=== PATIENT | female | born 1935 | race Caucasian/White ===

== ENCOUNTER 2020-03-11 18:10 | Emergency (ER) | payer MEDICARE, OTHER ==
[2020-03-11] MEDS ORDERED: ACETAMINOPHEN 325 MG TABLET PO ONE (18:51)
--- NOTE | 2020-03-11 19:07 | ER Document Report ---
ED Fall - General Chief Complaint: Fall Injury Stated Complaint: FALL/RIGHT SHOULDER PAIN,FACE PAIN Time Seen by Provider: 03/11/20 18:41 Primary Care Provider: JANNA YORK MD [ACTIVE PROVISIONAL STAFF] - 03/14/20 ALEX LIRA MD [Primary Care Provider] - Follow up as needed Information source: Patient Notes: 84-year-old female presented to ED after a fall that occurred just prior to arrival. She states she was reaching for some when she slipped and fell forward landing on her right arm and shoulder and abdomen. She states she did not hit her head except for a small place above her right forehead but this does not even hurt. She does have some very minimal bruising to that area. She does complain of a lot of pain to her right shoulder. She refused any narcotics states she would prefer Tylenol or ibuprofen. She was treated with ibuprofen. She does have limited mobility to the right shoulder due to the pain. She states she does take aspirin 81 mg daily. She states her pain is a 3 out of 5. She is alert oriented respirations regular nonlabored speaking in full sentences. - HPI Occurred: Just prior to arrival Where: Home, Indoors Context: Slipped Associated symptoms: None Location of injury/pain: Abdomen, Face, Shoulder Quality of pain: Achy, Sharp Severity: Moderate Pain Level: 3 - Related data Allergies/Adverse Reactions: No Known Allergies Allergy (Verified 03/11/20 18:34) Home Medications: pt does not have medication list at this time. Past Medical History - General Information source: Patient - Social History Smoking Status: Never Smoker Frequency of alcohol use: None Drug Abuse: None Lives with: Family Family History: Reviewed & Not Pertinent Patient has homicidal ideation: No - Past Medical History Cardiac Medical History: Reports: Hx Hypercholesterolemia, Hx Hypertension Pulmonary Medical History: Reports: None EENT Medical History: Reports: None Neurological Medical History: Reports: None Endocrine Medical History: Reports: Hx Diabetes Mellitus Type 2, Hx Hypothyroidism Renal/ Medical History: Reports: None Malignancy Medical History: Reports: None GI Medical History: Reports: None Musculoskeletal Medical History: Reports Hx Arthritis, Reports Hx Musculoskeletal Deformity, Reports Hx Musculoskeletal Trauma Skin Medical History: Reports None Psychiatric Medical History: Reports: None Traumatic Medical History: Reports: None Infectious Medical History: Reports: None Past Surgical History: Reports: Hx Tubal Ligation - Immunizations Immunizations up to date: Yes Review of Systems - Review of Systems Constitutional: No symptoms reported EENT: Other - Contusion above the right Cardiovascular: No symptoms reported Respiratory: No symptoms reported Gastrointestinal: No symptoms reported Genitourinary: No symptoms reported Female Genitourinary: No symptoms reported Musculoskeletal: Joint pain - Right shoulder, Joint swelling - Right shoulder Skin: Other - Contusion above the right Hematologic/Lymphatic: No symptoms reported Neurological/Psychological: No symptoms reported Physical Exam - Vital signs Vitals: Temp Pulse Resp BP Pulse Ox 97.6 F 65 16 152/60 H 96 03/11/20 18:17 03/11/20 18:17 03/11/20 18:17 03/11/20 18:17 03/11/20 18:17 Interpretation: Normal - General General appearance: Appears well, Alert - HEENT Head: Ecchymosis - Above the right eyebrow, Tenderness - Above the right eyebrow. No: Open wounds, [place]'s eyes Eyes: Normal Pupils: PERRL Ears: Normal External canal: Normal Tympanic membrane: Normal Sinus: Normal Nasal: Normal Mouth/Lips: Normal Mucous membranes: Normal - Respiratory Respiratory status: No respiratory distress Chest status: Nontender Breath sounds: Normal Chest palpation: Normal - Cardiovascular Rhythm: Regular Heart sounds: Normal auscultation Murmur: No - Abdominal Inspection: Normal Distension: No distension Bowel sounds: Normal Tenderness: Nontender Organomegaly: No organomegaly - Back Back: Normal, Nontender - Extremities General upper extremity: Normal temperature General lower extremity: Normal inspection, Nontender, Normal color, Normal ROM, Normal temperature, Normal weight bearing. No: Sandi's sign Shoulder: Tender, Ecchymosis, Limited ROM. No: Abrasion, Deformity, Dislocation, Instability, Laceration Arm: Tender - Neurological Neuro grossly intact: Yes Cognition: Normal Orientation: AAOx4 Jesús Coma Scale Eye Opening: Spontaneous [place] Coma Scale Verbal: Oriented [place] Coma Scale Motor: Obeys Commands [place] Coma Scale Total: 15 Speech: Normal Motor strength normal: LUE, RUE, LLE, RLE Sensory: Normal - Psychological Associated symptoms: Normal affect, Normal mood - Skin Skin Temperature: Warm Skin Moisture: Dry Skin Color: Normal Course - Re-evaluation Re-evalutation: 03/12/20 00:26 Patient was treated with oxycodone and 2 Tylenols while in the emergency room. Her x-ray report was discussed with her and her daughter. She does have a slightly displaced fracture of the humeral head. She was treated with a sling and discharged home with prescription for Percocet. Patient was instructed to follow-up with orthopedics on Saturday. Patient verbalized understanding and agreement with treatment plan and she was discharged home. - Vital Signs Vital signs: Temp Pulse Resp BP Pulse Ox 98.0 F 62 18 177/52 H 98 03/11/20 19:54 03/11/20 19:54 03/11/20 19:54 03/11/20 19:54 03/11/20 19:54 - Diagnostic Test Radiology reviewed: Image reviewed, Reports reviewed Procedures - Immobilization Right Shoulder Time completed: 19:54 Pre-Proc Neuro Vasc Exam: Normal Immobilizer type: Sling Performed by: GLENNY Post-Proc Neuro Vasc Exam: Normal, Unchanged from pre-exam Discharge - Discharge Clinical Impression: Closed fracture of right proximal humerus Qualifiers: Encounter type: initial encounter Fracture morphology: unspecified fracture morphology Qualified Code(s): S42.201A - Unspecified fracture of upper end of right humerus, initial encounter for closed fracture Condition: Stable Disposition: HOME, SELF-CARE Additional Instructions: Fracture Proximal Humerus There is a fracture at the upper end of the humerus, near the shoulder joint. Your physician has assessed the fracture's severity and has determined that it will heal well without surgery or "setting." The typical shoulder fracture doesn't need a cast. It's best treated by binding the arm down with a special sling. Ice packs are used to reduce pain and swelling. After early healing has occurred, [id number] exercises are prescribed for the shoulder. Complete healing may take three to six weeks, depending on the age of the patient and the severity of the fracture. Call the doctor or return at once if the arm becomes numb, or if pain or swelling become severe. Sling to be Used You are to use a sling. This is to rest the area, and to prevent it from hanging downward. Use this sling for at least 48 hours (or longer if so instructed by the doctor). Some types of splints will break if not supported by the sling, so the sling must be used as long as the splint. Ice can be placed inside the sling over the injured area. Once you remove the sling, you should not encounter pain when you use the arm and hand. If you do feel pain beneath the cast or splint, you must continue use of the sling. ORAL NARCOTIC MEDICATION: You have been given a prescription for pain control. This medication is a narcotic. It's best taken with food, as nausea can result if taken on an empty stomach. Don't operate machinery or drive within six hours of taking this medication. Do not combine this medicine with alcohol, or with any medication which can cause sedation (such as cold tablets or sleeping pills) unless you get permission from the physician. Narcotics tend to cause constipation. If possible, drink plenty of fluids and eat a diet high in fiber and fruits. Please be aware that prescription narcotics also have the potential for abuse. People become addicted to these medications because of the general sense of wellbeing that they induce. This feeling along with a significant reduction in tension, anxiety, and aggression provides a stimulating seductive quality to these drugs. Once your pain is under control, we encourage you to discard your unused narcotics. FOLLOW-UP CARE: Call orthopedics first thing Saturday and schedule follow- up. If you have been referred to a physician for follow-up care, call the physicians office for an appointment as you were instructed or within the next two days. If you experience worsening or a significant change in your symptoms, notify the physician immediately or return to the Emergency Department at any time for re-evaluation. Prescriptions: Oxycodone HCl/Acetaminophen [Percocet 5-325 mg Tablet] 1 tab PO Q6HP PRN #10 tab PRN Reason: Forms: Elevated Blood Pressure Referrals: ALEX LIRA MD [Primary Care Provider] - Follow up as needed JANNA YORK MD [ACTIVE PROVISIONAL STAFF] - 03/14/20
[2020-03-11] MEDS ORDERED: OXYCODONE HCL IR 5 MG TABLET PO ONE (19:33)
--- NOTE | 2020-03-11 19:33 | RADIOLOGY REPORT (SQ) ---
EXAM DESCRIPTION: SHOULDER RIGHT 2 OR MORE VIEWS IMAGES COMPLETED DATE/TIME: 03/11/2020 6:14 pm REASON FOR STUDY: fall COMPARISON: None. NUMBER OF VIEWS: Three views. TECHNIQUE: Internal rotation, external rotation, and Y view images acquired of the right shoulder. LIMITATIONS: None. FINDINGS: MINERALIZATION: Normal. BONES: Acute comminuted fracture of the proximal right humeral neck. The clavicle and scapula are in tact. JOINTS: Normal glenohumeral joint space alignment. Normal acromioclavicular joint alignment. VISUALIZED LUNGS AND RIBS: No pneumothorax. No rib fracture. SOFT TISSUES: No radiopaque foreign body. OTHER: No other significant finding. IMPRESSION: Acute comminuted fracture of the proximal right humeral neck. TECHNICAL DOCUMENTATION: JOB ID: [id number] 2010 [employer]- All Rights Reserved Reading location - IP/workstation name: [email or web address]
[2020-03-11 19:48] VITALS: BP 177/52
== END 2020-03-11 19:55 | disposition home or self-care (01) ==
LOC: ER 18:10
DX: S42.201A Unspecified fracture of upper end of right humerus, initial encounter for closed fracture (principal); R51 Headache; W01.0XXA Fall on same level from slipping, tripping and stumbling without subsequent striking against object, initial encounter; Y92.009 Unspecified place in unspecified non-institutional (private) residence as the place of occurrence of the external cause; E78.00 Pure hypercholesterolemia, unspecified; I10 Essential (primary) hypertension; E11.9 Type 2 diabetes mellitus without complications; E03.9 Hypothyroidism, unspecified; Z79.82 Long term (current) use of aspirin; Z98.51 Tubal ligation status
CPT/HCPCS: 99283; 73030; A9270 ×2